=== PATIENT | female | born 1985 | race Caucasian/White ===

== ENCOUNTER 2020-04-03 08:37 | Emergency (ER) | payer MEDICAID, SELFPAY ==
[~2020-04-03] VITALS: Ht 157.5 cm; Wt 63.5 kg
[2020-04-03 08:40] VITALS: Ht 157.5 cm; Wt 63.5 kg
[2020-04-03 09:27] VITALS: BP 97/65
== END 2020-04-03 09:27 | disposition home or self-care (01) ==
LOC: ED 08:37
DX: U07.1 COVID-19 (principal)
CPT/HCPCS: U0003-CS